=== PATIENT | female | born 1985 | race African-American/Black ===

== ENCOUNTER 2018-11-17 08:23 | Emergency (ER) | payer MEDICAID, MEDICARE ==
[~2018-11-17] VITALS: Ht 167.6 cm; Wt 90.0 kg
[~2018-11-17 08:23] MED LIST: PRENATAL VITAMINS
[2018-11-17 08:52] VITALS: BP 112/63
[2018-11-17 09:48] LABS: BASOPHILS % 0.6 % (0.0-2.0); EOSINOPHILS % 0.4 % (0.0-5.0); HEMATOCRIT. 34.6 % (36.0-48.0); HEMOGLOBIN. 12.1 g/dL (12.0-16.0); LYMPHOCYTES % 31.5 % (20.0-50.0); MEAN CORPUSCULAR HEMOGLOBIN 30.9 pg (28.0-32.0); MEAN CORPUSCULAR VOLUME 88.6 fL (81.0-99.0); MEAN PLATELET VOLUME 7.5 fl (7.4-10.4); MONOCYTES % 7.6 % (2.0-8.0); NEUTROPHILS % 59.9 % (40.0-76.0); PLATELET 285 x1000/uL (130-400)
[2018-11-17 09:52] LABS: CHLORIDE 108 mEq/L (98-107)
[2018-11-17 09:59] LABS: CLARITY URINE CLEAR (CLEAR); COLOR URINE YELLOW (YELLOW); KETONES URINE 1+ (NEGATIVE); LEUKOCYTE ESTERASE URINE NEGATIVE (NEGATIVE); NITRITE URINE NEGATIVE (NEGATIVE); OCCULT BLOOD URINE NEGATIVE (NEGATIVE); PROTEIN URINE NEGATIVE (NEGATIVE); SPECIFIC GRAVITY URINE 1.017 (1.005-1.030); UROBILINOGEN URINE 0.2 E.U./dL (0.2-1.0)
[2018-11-17 10:16] LABS: B-HCG QUANTITATIVE 25907 mIU/mL (<3)
== END 2018-11-17 12:05 | disposition left against medical advice (07) ==
LOC: ER 08:23
DX: O46.92 Antepartum hemorrhage, unspecified, second trimester (principal); O26.892 Other specified pregnancy related conditions, second trimester; R10.2 Pelvic and perineal pain; Z98.890 Other specified postprocedural states; Z3A.14 14 weeks gestation of pregnancy
CPT/HCPCS: 36415; 76815; 81025; 84702; 86850; 86900; 99284